=== PATIENT | male | born 1985 | race Caucasian/White ===

== ENCOUNTER 2017-06-09 17:46 | Emergency (ER) | payer OTHER ==
[~2017-06-09] VITALS: Ht 180.3 cm; Wt 84.0 kg
[2017-06-09] MEDS ORDERED: KEFLEX500 MG PO (20:34)
[2017-06-09 20:54] VITALS: BP 131/76
== END 2017-06-09 20:54 | disposition home or self-care (01) ==
LOC: EME 17:46
DX: S66.922A Laceration of unspecified muscle, fascia and tendon at wrist and hand level, left hand, initial encounter (principal); S61.211A Laceration without foreign body of left index finger without damage to nail, initial encounter; W45.8XXA Other foreign body or object entering through skin, initial encounter; W23.0XXA Caught, crushed, jammed, or pinched between moving objects, initial encounter; Z23 Encounter for immunization
CPT/HCPCS: 99281; 99284